=== PATIENT | male | born 1965 | race Caucasian/White ===

== ENCOUNTER 2024-01-10 16:47 | Emergency (ER) | payer OTHER, SELFPAY ==
[2024-01-10 16:50] VITALS: BP 173/86
--- NOTE | 2024-01-10 17:34 | ED.GENMED ---
History of Present Illness
General
Chief Complaint: Skin Surface Trauma
Source: patient
Exam Limitations: none
Time Seen by Provider: 01/10/24 17:21
Nursing documentation reviewed up to this point in time: agreed with
History of Present Illness
History of Present Illness:
pt is a 58 y/o M right hand dominant
here with left dorsal pinky finger laceration from a cutting machine today
tetanus was within year
has a linear lacaeration over the PIP joint
full rom
no numbness/tingilng/weankness
opens up when he flexes
can fully extend
Past History
Past History
ED Past Medical History: HTN and Hypercholesterolemia
Social History
Tobacco: Non-smoker
Alcohol: None
Drug: None
Personal:
Living: with family
Review of Systems
Review of Systems
Allergies reviewed?: Yes
All Other Systems: Not applicable
Phy Exam
Physical Exam
Physical Exam:
GENERAL: Alert , in no apparent distress, comfortable at rest
HEAD: NCAT
CV: < 2 sec cap refill left pinky
NEUROLOGICAL: Alert and oriented, no focal neuro deficits, , 5/5 strength, sensation intact,
SKIN: Warm and dry, linear laceration dorsal L pinky finger PIP joint obliquely oriented approx 3 cm
MUSCULOSKELETAL: left 5th finger laceration
full ROM
normal sensation
PSYCH: Normal and appropriate interaction.
Course
Vital Signs
Initial and Last Documented VS:
Initial Vital Signs
Temp Pulse Resp BP Pulse Ox
97.8 F 85 16 173/86 96
01/10/24 16:50 01/10/24 16:50 01/10/24 16:50 01/10/24 16:50 01/10/24 16:50
Last Documented Vital Signs
Temp Pulse Resp BP Pulse Ox
97.8 F 87 18 135/94 98
01/10/24 16:50 01/10/24 18:10 01/10/24 18:10 01/10/24 18:10 01/10/24 18:10
Procedures
Laceration Closure
Left Proximal Dorsal Fifth:
Status of Wound: clean
Size of Wound in cm: 2.5
Description of Wound Edges: sharp
Preparation: cleaned with saline
Anesthesia: 1% Lidocaine
Wound exploration: explored to base- no FB and no tendon involvement
Type of Closure: single layer closure
Skin Closure Material: 5-0 nylon
Number of sutures: 4
MDM/Problems Addressed
Differential Diagnosis Includes:
laceration, abrasion
MDM/Problems Addressed:
58 y/o M
left pinky finger laceration over PIP joint dorsal surface
no extensor deficit
full rom
normal snesation
suttures placed
well approximated
wound care instructions
appreciate chornic HTN, likely in this setting, aysmptoamtic f/u pcp
*Critical Care Note
Total Time (30-74mins, 75-104mins- exclusive of procedures): Not Applicable
ED Attending Note
-
Portions of this chart may have been created with voice recognition software.� Occasional wrong word or��sound alike� substitutions may have occurred due to the inherent limitations of voice recognition software.
Discharge Plan
Departure
Patient Disposition: Home (Routine Discharge)
Date of Disposition: 01/10/24
Time of Disposition: 18:03
Patient with high blood pressure during this ER visit?: Yes
Condition: Fair
Discharge Problem:
Laceration of left little finger
Instructions: Laceration Repair With Stitches (DC)
Prescriptions:
No Action
cephalexin 500 mg capsule
500 mg PO QID 7 Days Qty: 28 0RF
Referrals:
Yanet Woodard MD [Family Provider] - Follow up in 1 week
Activity Restrictions/Additional Instructions:
KEEP THE WOUND CLEAN AND DRY FOR 24 HOURS
AFTER THAT YOU CAN GET IT WET IN THE BATH/SHOWER ONCE A DAY AND MAKE SURE IT IS CLEAN AND THERE IS NO DRIED BLOOD ON THE STITCHES
APPLY NEOSPORIN AND A BANDAID
THE STITCHES NEED TO BE REMOVED IN ABOUT 7-10 DAYS, SEE YOUR DOCTOR FOR THIS.
THE LAST DAY BEFORE STITCHES OUT, NO OINTMENT, LEAVE OPEN TO AIR
WATCH FOR SIGNS OF INFECTION AND RETURN NEEDED FOR PAIN, SWELLING, REDNESS, DRAINAGE, BLEEDING.
TYLENOL NEEDED FOR PAIN.
Interventions
Interventions:
*Risk Screen - Suicide Last Done: 01/10/24 16:50
*General Assessment Last Done: 01/10/24 16:50
*Neglect/Abuse Screening Last Done: 01/10/24 16:50
ED- Fall Risk Assessment Last Done: 01/10/24 16:50
*ED COVID-19 Vaccine History Last Done: 01/10/24 16:50
*Nursing Disposition Last Done: 01/10/24 18:10
ED-Skin Assessment Last Done: 01/10/24 17:26
Discharge Date and Time
Discharge Date/Time: 01/10/24 18:11
Print Language: [id number]
[2024-01-10 18:10] VITALS: BP 135/94
== END 2024-01-10 18:11 | disposition home or self-care (01) ==
LOC: EMR 16:47
PROVIDERS: EMERGENCY PHYSICIAN Emergency Medicine; FAMILY PHYSICIAN Internal Medicine
DX: S61.217A Laceration without foreign body of left little finger without damage to nail, initial encounter (principal); W45.8XXA Other foreign body or object entering through skin, initial encounter; I10 Essential (primary) hypertension; E78.00 Pure hypercholesterolemia, unspecified
CPT/HCPCS: 99282; 12001